=== PATIENT | male | born 1975 | race African-American/Black ===

== ENCOUNTER 2016-03-01 08:02 | Emergency (ER) | payer SELFPAY ==
[~2016-03-01] VITALS: Ht 185.4 cm; Wt 85.0 kg
[~2016-03-01 08:02] MED LIST: MOTR100T PO; TYLE500T PO
[2016-03-01 08:04] VITALS: BP 149/95; PULSE 70; RESP 20; TEMP 97.7; O2SAT 96
[2016-03-01] MEDS ORDERED: ACETAMINOPHEN 500 MG CPLT PO ONE (08:15)
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
--- NOTE | 2016-03-01 09:19 | RADRPT ---
EXAM DATE/TIME: 03/01/2016 08:41 [facility] COMPARISON: No previous studies available for comparison. INDICATIONS : Head and neck pain. RADIATION DOSE: 40.21 CTDIvol (mGy) MEDICAL HISTORY : Hypertension. SURGICAL HISTORY : None. ENCOUNTER: Initial ACUITY: 1 day PAIN SCALE: 8/10 LOCATION: cranial TECHNIQUE: Multiple contiguous axial images were obtained of the head. Using automated exposure control and adjustment of the mA and/or kV according to patient size, radiation dose was kept as low as reasonably achievable to obtain optimal diagnostic quality images. FINDINGS: CEREBRUM: The ventricles are normal for age. No evidence of midline shift, mass lesion, hemorrha ge or acute infarction. No extra-axial fluid collections are seen. POSTERIOR FOSSA: The cerebellum and brainstem are intact. The 4th ventricle is midline. The cer ebellopontine angle is unremarkable. EXTRACRANIAL: The visualized portion of the orbits is intact. SKULL: The calvaria is intact. No evidence of skull fracture. CONCLUSION: Negative for acute process. Wallace Alexander MD FACR on March 01, 2016 at 9:17 Board Certified Radiologist. This report was verified electronically.
--- NOTE | 2016-03-01 09:31 | RADRPT ---
EXAM DATE/TIME: 03/01/2016 08:41 [facility] COMPARISON: No previous studies available for comparison. INDICATIONS : Head and neck pain. RADIATION DOSE: 18.45 CTDIvol (mGy) MEDICAL HISTORY : Hypertension. SURGICAL HISTORY : None. ENCOUNTER: Initial ACUITY: 1 day PAIN SCALE: 8/10 LOCATION: neck TECHNIQUE: Volumetric scanning of the cervical spine was performed. Multiplanar reconstructions i n the sagittal, coronal and oblique axial planes were performed. Using automated exposure control a nd adjustment of the mA and/or kV according to patient size, radiation dose was kept as low as reason ably achievable to obtain optimal diagnostic quality images. FINDINGS: VERTEBRAE: Normal vertebral body height. ALIGNMENT: No evidence of subluxation. C2-C3: The bony spinal canal is normal in size. No evidence of disc bulge or herniation. The neura l foramina are bilaterally patent. C3-C4: The bony spinal canal is normal in size. No evidence of disc bulge or herniation. The neura l foramina are bilaterally patent. C4-C5: The bony spinal canal is normal in size. No evidence of disc bulge or herniation. The neura l foramina are bilaterally patent. C5-C6: The bony spinal canal is normal in size. No evidence of disc bulge or herniation. The neura l foramina are bilaterally patent. C6-C7: The bony spinal canal is normal in size. No evidence of disc bulge or herniation. The neura l foramina are bilaterally patent. C7-T1: The bony spinal canal is normal in size. No evidence of disc bulge or herniation. The neura l foramina are bilaterally patent. CONCLUSION: Negative for fracture. Wallace Alexander MD FACR on March 01, 2016 at 9:29 Board Certified Radiologist. This report was verified electronically.
[2016-03-01] MEDS ORDERED: DICL75TA PO (09:44)
== END 2016-03-01 10:06 | disposition home or self-care (01) ==
LOC: NEPB 08:02
DX: S09.90XA Unspecified injury of head, initial encounter (principal); G44.309 Post-traumatic headache, unspecified, not intractable; E78.00 Pure hypercholesterolemia, unspecified; I10 Essential (primary) hypertension; Y09 Assault by unspecified means
CPT/HCPCS: 70450; 72125

== ENCOUNTER 2017-03-24 00:28 | Observation (INO) | payer OTHER ==
[~2017-03-24] VITALS: Ht 185.4 cm; Wt 118.0 kg
[2017-03-24] VITALS (9 sets, daily range): BP systolic 109–157; BP diastolic 58–100; PULSE 53–84; RESP 16–20; TEMP 97.4–98.2; O2SAT 97–100
[~2017-03-24 00:28] MED LIST changes: +DICL75TA PO; -MOTR100T PO; -TYLE500T PO
[2017-03-24] MEDS ORDERED: NITROGLYCERIN 2% OINT 1 GM PACKET TOP ONE (01:15)
[2017-03-24] MEDS ORDERED: NITROGLYCERIN 0.4 MG SL 25 TABS/BTL SL ONE (01:15)
[2017-03-24] MEDS ORDERED: SODIUM CHLORID 0.9% 500 ML INJ 500 ML IV ONE (01:15)
[2017-03-24] MEDS ORDERED: ASPIRIN 81 MG CHEW TAB PO ONE (01:15)
[2017-03-24] MEDS ORDERED: SODIUM CHLORIDE 0.9% FLUSH 10 ML FLUSH IVF PRN (01:15)
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
--- NOTE | 2017-03-24 01:38 | RADRPT ---
EXAM DATE/TIME: 03/24/2017 01:12 [facility] COMPARISON: CHEST SINGLE AP, May 29, 2013, 2:08. INDICATIONS : Chest pain. MEDICAL HISTORY : Hypertension. SURGICAL HISTORY : None. ENCOUNTER: Initial ACUITY: 1 day PAIN SCORE: 4/10 LOCATION: chest substernal. FINDINGS: A single view of the chest demonstrates the lungs to be symmetrically aerated without evidence of mas s, infiltrate or effusion. The cardiomediastinal contours are unremarkable. Osseous structures are intact. CONCLUSION: 1. No active disease. Solomon Adamson MD on March 24, 2017 at 1:35 Board Certified Radiologist. This report was verified electronically.
[2017-03-24 02:11] LABS: AUTOMATED NEUTROPHIL # 1.2 TH/MM3 (1.8-7.7); BASOPHIL % 0.8 % (0.0-2.0); EOSINOPHIL # 0.1 TH/MM3 (0-0.4); EOSINOPHIL % 3.1 % (0.0-4.0); HEMATOCRIT 40.8 % (39.0-51.0); HEMOGLOBIN 13.9 GM/DL (13.0-17.0); LYMPH % 50.9 % (9.0-44.0); LYMPHOCYTE # 1.9 TH/MM3 (1.0-4.8); MEAN CELL VOLUME 89.3 FL (80.0-100.0); MEAN CORPUSCULAR HEMOGLOBIN 30.4 PG (27.0-34.0); MONO % 13.1 % (0.0-8.0); MONOCYTE # 0.5 TH/MM3 (0-0.9); NEUT % 32.1 % (16.0-70.0); PLATELET COUNT 204 TH/MM3 (150-450); RED BLOOD COUNT 4.57 MIL/MM3 (4.50-5.90); RED CELL DISTRIBUTION WIDTH 15.1 % (11.6-17.2); WHITE BLOOD COUNT 3.7 TH/MM3 (4.0-11.0)
[2017-03-24 02:28] LABS: ALBUMIN 3.7 GM/DL (3.4-5.0); AST (GOT) 23 U/L (15-37); BICARBONATE 25.7 MEQ/L (21.0-32.0); BLOOD UREA NITROGEN 12 MG/DL (7-18); CALCIUM 8.6 MG/DL (8.5-10.1); CHLORIDE 108 MEQ/L (98-107); CREATININE 1.14 MG/DL (0.60-1.30); GLOMERULAR FILTRATION RATE 85 ML/MIN (>89); GLUCOSE,RANDOM 78 MG/DL (74-106); LIPASE 297 U/L (73-393); MAGNESIUM 1.8 MG/DL (1.5-2.5); SODIUM (NA) 141 MEQ/L (136-145)
[2017-03-24 02:31] LABS: ALKALINE PHOSPHATASE 50 U/L (45-117); ALT (GPT) 21 U/L (12-78); TOTAL BILIRUBIN ADULT 0.3 MG/DL (0.2-1.0); TOTAL PROTEIN 7.6 GM/DL (6.4-8.2); TROPONIN I LESS THAN 0.02 NG/ML (0.02-0.05)
[2017-03-24] MEDS ORDERED: ACETAMINOPHEN 500 MG CPLT PO PRN (04:15)
[2017-03-24] MEDS ORDERED: SODIUM CHLORIDE 0.9% FLUSH 10 ML FLUSH IV FLUSH PRN (04:15)
[2017-03-24 04:48] LABS: TROPONIN I LESS THAN 0.02 NG/ML (0.02-0.05)
[2017-03-24] MEDS ORDERED: KETOROLAC TROMETHAMINE 30 MG/ML (IVP) VIAL IVP ONE (08:15)
--- NOTE | 2017-03-24 08:34 | EKG ---
Date Performed: 03/24/2017 Time Performed: 00:51:11 PTAGE: 41 years EKG: SINUS BRADYCARDIA EARLY REPOLARIZATION BORDERLINE ECG PREVIOUS TRACING : 05/29/2013 07.19 Since previous tracing, no significant change noted DOCTOR: Ha Watkins Interpretating Date/Time 03/24/2017 08:32:19
--- NOTE | 2017-03-24 08:38 | EKG ---
Date Performed: 03/24/2017 Time Performed: 04:07:44 PTAGE: 41 years EKG: SINUS BRADYCARDIA ST ELEVATION, PROBABLY EARLY REPOLARIZATION BORDERLINE ECG PREVIOUS TRACING : 03/24/2017 00.51 Since previous tracing, no significant change noted DOCTOR: Ha Watkins Interpretating Date/Time 03/24/2017 08:35:49
[2017-03-24] MEDS ORDERED: SODIUM CHLORIDE 0.9% FLUSH 10 ML FLUSH IV FLUSH SCH (09:00)
--- NOTE | 2017-03-24 09:06 | HHI.HP ---
HPI Primary Care Physician No Primary Care Physician Chief Complaint Chest pain History of Present Illness This is a 41-year-old male that presents to ED with a complaint of 2 days of intermittent chest discomfort. Describes as a gripping in the center of his chest. It is not exertionally related. States it began first while he was sitting at home watching television. We'll last about 30 minutes. It has recurred 4 times since then. Last occurrence was yesterday. This is at rest. Both little nauseous on one episode. Or another episode he was diaphoretic. No shortness of breath. Discomfort does not radiate. Denies history of CAD. He recalls having a stress test, reviewed records and he had a nonischemic Rock protocol ETT in 2014. Denies recent illness. Denies fevers or chills. Review of Systems General: Patient denies fevers, chills recent, and recent travel HEENT: Patient denies headache, sore throat, difficulty swallowing. Cardiovascular: Has the chest discomfort as mentioned above. Denies sensation of heart beating rapidly or irregularly. No syncope. He was diaphoretic. Respiratory: Denies shortness of breath or inspirational chest discomfort. Denies coughing wheezing or hemoptysis. GI: He was nauseous. Patient denies vomiting, diarrhea, abdominal pain, bloody stools. Musculoskeletal: Patient denies joint pain or edema. Denies calf pain or edema. Neurovascular: Patient denies numbness, tingling, weakness in extremities. Denies headache. Endocrine: Denies polyuria and polydipsia. Hematologic: Denies easy bruising. Skin: Denies rash or itching. Past Family Social History Allergies: Coded Allergies: No Known Allergies (Verified Allergy, Unknown, 03/24/17) Past Medical History States he has history of hypertension but has been on a medication for about 4 years. History of tobacco abuse, smokes one pack a day. States it was discontinued after he began exercising in order needed blood pressure medicine. Denies hyperlipidemia, diabetes, and CAD. Past Surgical History Noncontributory. Reported Medications Reported Meds & Active Scripts Active Active Ordered Medications Current Medications Medications (Trade) Dose Ordered Sig/Andrés Route Start Time Stop Time Status Last Admin (NS Flush) 2 ml UNSCH PRN IVF 03/24/17 01:15 (NS Flush) 2 ml UNSCH PRN IV FLUSH 03/24/17 04:15 (NS Flush) 2 ml BID IV FLUSH 03/24/17 09:00 (Tylenol) 500 mg Q4H PRN PO 03/24/17 04:15 Family History Denies family history of CAD. Social History Smokes one pack of cigarettes daily for 7 years. Denies alcohol or illicit drugs. He works in construction. Physical Exam Vital Signs Vital Signs Date Time Temp Pulse Resp B/P (MAP) Pulse Ox O2 Delivery O2 Flow Rate FiO2 03/24/17 08:16 98.2 84 18 109/74 (86) 97 03/24/17 06:18 56 03/24/17 05:16 98.0 54 20 117/58 (77) 98 03/24/17 04:57 03/24/17 04:27 99 21 03/24/17 02:51 66 16 121/66 (84) 100 Room Air 03/24/17 01:53 118/65 (82) 114/64 (81) 03/24/17 01:53 98 Room Air 03/24/17 01:41 99 Room Air 03/24/17 00:31 97.5 79 16 157/100 (119) 98 Room Air Physical Exam GENERAL: This is a well-nourished, well-developed patient, in no apparent distress. Patient speaks in clear complete sentences. Patient is pleasant. HEENT: Head is atraumatic and normocephalic. Neck is supple without lymphadenopathy and trachea is midline. No JVD or carotid bruits. CARDIOVASCULAR: Regular rate and rhythm without murmurs, gallops, or rubs. RESPIRATORY: Clear to auscultation. Breath sounds equal bilaterally. No wheezes , rales, or rhonchi. Center of chest wall is tender. No use of accessory muscles. GASTROINTESTINAL: Abdomen is nontender, nondistended. Abdomen soft. No obvious pulsatile mass or bruit. No CVA tenderness. Strong femoral pulses bilaterally. Normal bowel sounds in all quadrants. MUSCULOSKELETAL: Patient is moving upper and lower extremities freely. No calf tenderness or edema, no Homans sign. Strong pulses in upper and lower extremities. NEUROLOGICAL: Patient is alert and oriented. Cranial nerves 2-12 are grossly intact. No focal deficits and speech is clear. SKIN: No rash and turgor is normal. Laboratory Laboratory Tests Test 1/31/18 01:30 03/24/17 04:11 White Blood Count 3.7 Red Blood Count 4.57 Hemoglobin 13.9 Hematocrit 40.8 Mean Corpuscular Volume 89.3 Mean Corpuscular Hemoglobin 30.4 Mean Corpuscular Hemoglobin Concent 34.0 Red Cell Distribution Width 15.1 Platelet Count 204 Mean Platelet Volume 8.0 Neutrophils (%) (Auto) 32.1 Lymphocytes (%) (Auto) 50.9 Monocytes (%) (Auto) 13.1 Eosinophils (%) (Auto) 3.1 Basophils (%) (Auto) 0.8 Neutrophils # (Auto) 1.2 Lymphocytes # (Auto) 1.9 Monocytes # (Auto) 0.5 Eosinophils # (Auto) 0.1 Basophils # (Auto) 0.0 CBC Comment DIFF FINAL Differential Comment Prothrombin Time 10.0 Prothromb Time International Ratio 1.0 Activated Partial Thromboplast Time 22.9 Blood Urea Nitrogen 12 Creatinine 1.14 Random Glucose 78 Total Protein 7.6 Albumin 3.7 Calcium Level 8.6 Magnesium Level 1.8 Alkaline Phosphatase 50 Aspartate Amino Transf (AST/SGOT) 23 Alanine Aminotransferase (ALT/SGPT) 21 Total Bilirubin 0.3 Sodium Level 141 Potassium Level 4.1 Chloride Level 108 Carbon Dioxide Level 25.7 Anion Gap 7 Estimat Glomerular Filtration Rate 85 Total Creatine Kinase 184 159 Creatine Kinase MB 1.3 1.2 Troponin I LESS THAN 0.02 LESS THAN 0.02 B-Type Natriuretic Peptide LESS THAN 2 Lipase 297 Result Diagram: 03/24/17 0130 03/24/17 0130 Imaging Last 24 hours Impressions Chest X-Ray 03/24/17 0107 Signed Impressions: Service Date/Time: Friday, March 24, 2017 01:12 - CONCLUSION: 1. No active disease. Solomon Adamson MD Course EKGs have sinus bradycardia with early repolarization. Caprini VTE Risk Assessment Caprini VTE Risk Assessment: No/Low Risk (score <= 1) Caprini Risk Assessment Model Point Value = 1 Point Value = 2 Point Value = 3 Point Value = 5 Age 41-60 Minor surgery BMI > 25 kg/m2 Swollen legs Varicose veins or History of unexplained or recurrent spontaneous Oral contraceptives or hormone replacement Sepsis (< 1 month) Serious lung disease, including pneumonia (< 1 month) Abnormal pulmonary function Acute myocardial infarction Congestive heart failure (< 1 month) History of inflammatory bowel disease Medical patient at bed rest Age 61-74 Arthroscopic surgery Major open surgery (> 45 min) Laparoscopic surgery (> 45 min) Malignancy Confined to bed (> 72 hours) Immobilizing plaster cast Central venous access Age >= 75 History of VTE Family history of VTE Factor V Leiden Prothrombin [id number] Lupus anticoagulant Anticardiolipin antibodies Elevated serum homocysteine Heparin-induced thrombocytopenia Other congenital or acquired thrombophilia Stroke (< 1 month) Elective arthroplasty Hip, pelvis, or leg fracture Acute spinal cord injury (< 1 month) Prophylaxis Regimen Total Risk Factor Score Risk Level Prophylaxis Regimen 0-1 Low Early ambulation 2 Moderate Order ONE of the following: *Sequential Compression Device (SCD) *Heparin 5000 units SQ BID 3-4 Higher Order ONE of the following medications: *Heparin 5000 units SQ TID *Enoxaparin/Lovenox 40 mg SQ daily (WT < 150 kg, CrCl > 30 mL/min) *Enoxaparin/Lovenox 30 mg SQ daily (WT < 150 kg, CrCl > 10-29 mL/min) *Enoxaparin/Lovenox 30 mg SQ BID (WT < 150 kg, CrCl > 30 mL/min) AND/OR *Sequential Compression Device (SCD) 5 or more Highest Order ONE of the following medications: *Heparin 5000 units SQ TID (Preferred with Epidurals) *Enoxaparin/Lovenox 40 mg SQ daily (WT < 150 kg, CrCl > 30 mL/min) *Enoxaparin/Lovenox 30 mg SQ daily (WT < 150 kg, CrCl > 10-29 mL/min) *Enoxaparin/Lovenox 30 mg SQ BID (WT < 150 kg, CrCl > 30 mL/min) AND *Sequential Compression Device (SCD) Assessment and Plan Assessment and Plan * Chest pain: Patient has had first 2 sets of cardiac enzymes and EKGs for ruling out purposes and will be seen by Dr. Ha Watkins of cardiology and the chest pain center. Chest wall is tender, we'll give a dose of Toradol. Patient will likely have a Rock protocol ETT and if that is nonischemic will be discharged home with instructions to follow-up with PCP. Return to ED for interval issues. * Tobacco abuse: Patient has been counseled on importance of smoking cessation. Patient is stable at this time. He is agreeable to this plan. Walker Monet Mar 24, 2017 09:06
[2017-03-24 10:10] LABS: TROPONIN I LESS THAN 0.02 NG/ML (0.02-0.05)
[2017-03-24] MEDS ORDERED: REGADENOSON INJ 0.4 MG/5 ML SYR ONE (11:24)
--- NOTE | 2017-03-24 13:45 | RADRPT ---
EXAM DATE/TIME: 03/24/2017 11:41 [facility] COMPARISON: No previous studies available for comparison. INDICATIONS : Chest pain. Angina. DOSE: 35 mCi Tc99m Myoview at stress. 11 mCi Tc99m Myoview at rest. 0.4 mg Lexiscan STRESS SYMPTOMS: Chest pain, dyspnea and nausea. EJECTION FRACTION: 55% MEDICAL HISTORY : Hypertension. Smoker. SURGICAL HISTORY : Knee. Jaw. ENCOUNTER: Initial ACUITY: 1 day PAIN SCALE: 0/10 LOCATION: Bilateral chest TECHNIQUE: The patient underwent pharmacologic stress with infusion of prescribed dose. Continuous ECG tracing was monitored during stress. Gated SPECT imaging was performed after stress and conventional SPECT i maging was performed at rest. The examination was performed on a SPECT/CT scanner, both attenuation and non-corrected datasets were reviewed. FINDINGS: DISTRIBUTION: The maximum perfused segment at stress is in the anterior lateral wall. PERFUSION STUDY: The pattern of perfusion at stress is within normal limits. There is a some stress score of 2. GATED STUDY: There is intact wall motion and thickening without hypokinetic or dyskinetic segments. CONCLUSION: 1. No fixed or reversible defects to suggest ischemia or infarction. 2. Normal wall motion and calculated ejection fraction. RISK CATEGORY: Low (<1% Annual Mortality Rate) Ajay Shankar MD on March 24, 2017 at 13:40 Board Certified Radiologist. This report was verified electronically.
--- NOTE | 2017-03-24 14:01 | HHI.DCPOC ---
Discharge Care Plan Diagnosis: (1) Chest pain (2) Tobacco abuse Goals to Promote Your Health * To prevent worsening of your condition and complications * To maintain your health at the optimal level Directions to Meet Your Goals Take your medications as prescribed Follow your dietary instruction Follow activity as directed Keep your appointments as scheduled Take your immunizations and boosters as scheduled If your symptoms worsen call your PCP, if no PCP go to Urgent Care Center or Emergency Room Smoking is Dangerous to Your Health. Avoid second hand smoke Call the 24-hour hour crisis hotline for domestic abuse at Walker Monet Mar 24, 2017 14:01
--- NOTE | 2017-03-25 10:57 | TR ---
Date Performed: 03/24/2017 Time Performed: 12:04:38 DOCTOR: Hiram Jaramillo DRUG LIST: CLINICAL HISTORY: REASON FOR TEST: CHEST PAIN REASON FOR ENDING: OBSERVATION: CONCLUSION: Lexiscan stress test was performed under standard four minute protocol. Radionuclid e was injected one minute prior to ending the test. No electrocardiographic abormalities were present to suggest ischemia. Nuclear imaging and interpretation are pending. COMMENTS:
--- NOTE | 2017-03-25 11:02 | TR ---
Date Performed: 03/24/2017 Time Performed: 09:01:25 DOCTOR: Hiram Jaramillo DRUG LIST: CLINICAL HISTORY: REASON FOR TEST: Chest pain REASON FOR ENDING: OBSERVATION: CONCLUSION: DEVELOPED CHEST TIGHTNESS BEGINING OF 2ND STAGE. PT REQUESTED TO STOP THE TREAFMILL. DISCOMFORT RESOLVED 1 MINUTE IN RECOVERY. PATIENT WAS SOB.Maximum DE=212 % Max HR Achieved=62.0% Tot al Exercise Time=3:23 COMMENTS: submaximal test,on ischemic changes,suggest alf nuclear test.
--- NOTE | 2017-03-25 14:08 | EKG ---
Date Performed: 03/24/2017 Time Performed: 07:47:40 PTAGE: 41 years EKG: SINUS BRADYCARDIA ST ELEVATION, PROBABLY EARLY REPOLARIZATION BORDERLINE ECG PREVIOUS TRACING : 03/24/2017 04.07 Since previous tracing, no significant change noted DOCTOR: Hiram Jaramillo Interpretating Date/Time 03/25/2017 14:07:21
== END 2017-03-24 16:40 | disposition home or self-care (01) ==
LOC: NEPC 00:28 → NEDA 03:30 → NEPFCDU 05:01
PROVIDERS: ADMIT Internal Medicine Interventional Cardiology; ATTEND Internal Medicine Interventional Cardiology
DX: R07.9 Chest pain, unspecified (principal); I10 Essential (primary) hypertension; E78.00 Pure hypercholesterolemia, unspecified; R94.31 Abnormal electrocardiogram [ECG] [EKG]; F17.210 Nicotine dependence, cigarettes, uncomplicated; Z79.82 Long term (current) use of aspirin; Z82.49 Family history of ischemic heart disease and other diseases of the circulatory system
CPT/HCPCS: 71045; 78452; 80053; 82550; 82552; 83690; 83735; 83880; 84484; 85025; 85610; 85730; 93005; 93017; 96361; 96374; 99285; A9502; G0378; J1885; J2785; J7040

== ENCOUNTER 2017-05-18 04:08 | Emergency (ER) | payer OTHER ==
[~2017-05-18] VITALS: Ht 185.4 cm; Wt 115.0 kg
[2017-05-18 04:14] VITALS: BP 132/74; PULSE 62; RESP 18; TEMP 98.3; O2SAT 98
--- NOTE | 2017-05-18 04:53 | PD ---
HPI Chief Complaint: Skin Problem Time Seen by Provider: 04:20 Travel History International Travel<30 days: No Contact w/Intl Traveler<30days: No Traveled to known affect area: No History of Present Illness HPI 41-year-old white male presents emergency department with complaints of swelling to his chin over the last 4 days. He states that he had a small area that has progressively worsened. It is moderately painful. He denies any prior history of abscess. No fever chills. No difficulty swallowing. PFSH Past Medical History Cancer: No Cardiac Catheterization: No Cardiovascular Problems: Yes (HTN) High Cholesterol: Yes Diabetes: No Diminished Hearing: No Endocrine: No Gastrointestinal Disorders: No Genitourinary: No Hepatitis: No Hiatal Hernia: No Heparin Induced Thrombocytopen: No Hypertension: Yes Immune Disorder: No Implanted Vascular Access Dvce: No Medical other: No Musculoskeletal: No Neurologic: No Psychiatric: No Reproductive: No Respiratory: No Sickle Cell Disease: No Thyroid Disease: No Tetanus Vaccination: < 5 Years Past Surgical History Coronary Artery Bypass Graft: No Pacemaker: No Other Surgery: Yes (JAW, LEFT EYE) Social History Alcohol Use: No (quit) Tobacco Use: Yes (1 PPD) Substance Use: No Allergies-Medications (Allergen,Severity, Reaction): Coded Allergies: No Known Allergies (Verified Allergy, Unknown, 05/18/17) Reported Meds & Prescriptions Reported Meds & Active Scripts Active [place] (Hydrocodone-Acetaminophen) 5 Mg-325 Mg Tab 1 Tab PO Q6H PRN Bactrim DS (Sulfamethoxazole-Trimethoprim) 800-160 Mg Tab 1 Tab PO BID Review of Systems Except as stated in HPI: all other systems reviewed are Neg Physical Exam Narrative GENERAL: Well-developed, well-nourished in no acute distress. Nontoxic appearing. HEAD: Normocephalic, patient has a 3 x 3 cm fluctuant abscess just below the mentum on the anterior neck. Positive erythema and tenderness. Positive fluctuance. No pointing.. EYES: Pupils equal round and reactive. Extraocular motions intact. No scleral icterus. No injection or drainage. ENT: TMs clear without erythema. The external auditory canals clear. Nose: clear . Posterior pharynx is pink and moist. No tonsillar edema or exudate. Uvula midline. Airway patent. NECK: Trachea midline.Supple, nontender, moves head freely. No central bony tenderness or spasm. CARDIOVASCULAR: Regular rate and rhythm without murmurs, gallops, or rubs. RESPIRATORY: Clear to auscultation. Breath sounds equal bilaterally. No wheezes , rales, or rhonchi. GASTROINTESTINAL: Abdomen soft, non-tender, nondistended. No hepato-splenomegaly , or palpable masses. No guarding. EXTREMITIES: No clubbing, cyanosis, or edema. No joint tenderness, effusion, or edema noted. BACK: Nontender without deformity or crepitance. No flank tenderness. Data Data Last Documented VS Vital Signs Date Time Temp Pulse Resp B/P (MAP) Pulse Ox O2 Delivery O2 Flow Rate FiO2 05/18/17 04:14 98.3 62 18 132/74 (93) 98 Orders Orders Sulfamet-Trimeth Ds 800-160 Mg (Bactrim (05/18/17 05:00) Acetamin-Hydrocod 325-5 Mg ([place] 5-325 (05/18/17 05:00) Lidocai-Epi 1%-1:100,000 Inj (Xylocaine- (05/18/17 05:00) Ed Discharge Order (05/18/17 05:20) MDM Medical Decision Making Medical Screen Exam Complete: No Emergency Medical Condition: No Medical Record Reviewed: No Differential Diagnosis MDM: High Differential diagnoses: Abscess, folliculitis, cellulitis, lymphangitis, abrasion, contact dermatitis Narrative Course An incision and drainage has been performed. Patient was given Bactrim DS and [place] 5 mg p.o. Procedures Procedure Narrative I&D abscess: After the risks and benefits were discussed the following procedure was performed. The skin is prepped and draped in the usual sterile fashion using Betadine. The abscess is anesthetized with 1% lidocaine. After adequate anesthesia, an 11 blade scalpel is used to make a 1.5 centimeter central incision. Perulant material is expressed . The abscess is irrigated with normal saline. The wound is packed open using iodoform gauze. A clean dressing is applied. The patient tolerated the procedure well. There was no complications. Follow-up instructions were given to the patient. Diagnosis Primary Impression: Neck abscess Patient Instructions: Narcotic given in the ED, General Instructions Additional Instructions: Rest. Elevation. keep clean and dry. remove the packing in two days. Daily wound care with soap, water and Neosporin. Three Advil every 6 hours. Septra DS, and Lortab. Follow-up with a primary care doctor in one week. Return to the ER for any problems. Med/Other Pt SpecificInfo: Prescription(s) given Scripts Hydrocodone-Acetaminophen ([place]) 5 Mg-325 Mg Tab 1 TAB PO Q6H Y for PAIN, #12 TAB 0 Refills Prov: Jennifer Cabrales MD 05/18/17 Sulfamethoxazole-Trimethoprim (Bactrim DS) 800-160 Mg Tab 1 TAB PO BID for Infection, #20 TAB 0 Refills Prov: Jennifer Cabrales MD 05/18/17 Disposition: 01 DISCHARGE HOME Condition: Stable Solomon Mckeon May 18, 2017 04:53
[2017-05-18] MEDS ORDERED: BACT800T5 PO (04:56)
[2017-05-18] MEDS ORDERED: NORC5TAB PO (04:56)
[2017-05-18] MEDS ORDERED: LIDOCAINE 1%/EPINEPHrine 1:100,000 SOLN 50 ML VIAL INFIL ONE (05:00)
[2017-05-18] MEDS ORDERED: ACETAMINOPHEN/HYDROcodone 325 MG/5 MG TAB PO ONE (05:00)
[2017-05-18] MEDS ORDERED: SULFAMETHOXAZOLE-TRIMETHOPRIM DS 800-160 MG TAB PO ONE (05:00)
== END 2017-05-18 06:07 | disposition home or self-care (01) ==
LOC: NEPD 04:08
DX: L02.11 Cutaneous abscess of neck (principal); I10 Essential (primary) hypertension; E78.00 Pure hypercholesterolemia, unspecified; F17.200 Nicotine dependence, unspecified, uncomplicated
CPT/HCPCS: 10061